=== PATIENT | female | born 1995 | race African-American/Black ===

== ENCOUNTER 2017-04-28 19:46 | Emergency (ER) | payer OTHER ==
[~2017-04-28] VITALS: Ht 154.9 cm; Wt 76.4 kg
[2017-04-28 19:47] VITALS: BP 147/84; PULSE 88; RESP 16; TEMP 98.7; O2SAT 97
[2017-04-28 21:02] LABS: AUTOMATED NEUTROPHIL # 4.5 TH/MM3 (1.8-7.7); BASOPHIL % 0.5 % (0.0-2.0); EOSINOPHIL # 0.1 TH/MM3 (0-0.4); EOSINOPHIL % 1.5 % (0.0-4.0); HEMATOCRIT 41.7 % (35.0-46.0); HEMOGLOBIN 13.2 GM/DL (11.6-15.3); LYMPH % 40.4 % (9.0-44.0); LYMPHOCYTE # 3.7 TH/MM3 (1.0-4.8); MEAN CORPUSCULAR HGB CONC 31.6 % (32.0-36.0); MEAN PLATELET VOLUME 7.6 FL (7.0-11.0); MONO % 7.7 % (0.0-8.0); MONOCYTE # 0.7 TH/MM3 (0-0.9); NEUT % 49.9 % (16.0-70.0); PLATELET COUNT 361 TH/MM3 (150-450); RED BLOOD COUNT 5.71 MIL/MM3 (4.00-5.30); RED CELL DISTRIBUTION WIDTH 14.5 % (11.6-17.2); WHITE BLOOD COUNT 9.1 TH/MM3 (4.0-11.0)
[2017-04-28] MEDS ORDERED: IBUPROFEN 600 MG TAB PO ONE (21:30)
[2017-04-28 21:38] LABS: ALBUMIN 3.9 GM/DL (3.4-5.0); AST (GOT) 17 U/L (15-37); BICARBONATE 27.6 MEQ/L (21.0-32.0); BLOOD UREA NITROGEN 16 MG/DL (7-18); CALCIUM 9.8 MG/DL (8.5-10.1); CHLORIDE 103 MEQ/L (98-107); GLOMERULAR FILTRATION RATE 94 ML/MIN (>89); GLUCOSE,RANDOM 77 MG/DL (74-106); LIPASE 153 U/L (73-393); SODIUM (NA) 139 MEQ/L (136-145)
[2017-04-28 21:39] LABS: BACTERIA, URINE RARE /hpf; BILIRUBIN, URINE NEG (NEG); BLOOD, URINE NEG (NEG); GLUCOSE,URINE NEG (NEG); KETONE, URINE NEG (NEG); MUCUS URINE FEW /lpf (OCC); NITRITE,URINE NEG (NEG); PH, URINE 5.5 (5.0-8.5); SQUAMOUS EPITHELIAL CELL URINE 3 /hpf (0-5); URINE COLOR LIGHT-YELLOW (YELLW/STRAW); URINE LEUKOCYTE ESTERASE MOD (NEG)
--- NOTE | 2017-04-28 21:39 | PD ---
HPI Chief Complaint: Abdominal Pain Time Seen by Provider: 21:01 Travel History International Travel<30 days: No Contact w/Intl Traveler<30days: No Traveled to known affect area: No History of Present Illness HPI Patient is a 22-year-old female presents emergency department for evaluation of left lower quadrant abdominal pain intermittent over the past week. Patient states she's not had a bowel movement in 5 days and thinks might be constipated. She went to her BRANCH COORDINATOR who did an exam ordered an ultrasound found her to have urinary tract infection and started her on antibiotics. Patient states she's been taking her antibiotics as prescribed, she's also been taking some MiraLAX only about a half a capful once a day. She denies any fevers blood in the stool nausea vomiting vaginal discharge vaginal bleeding or dysuria. Patient states the pain comes and goes, it is moderate to severe at times, context as above, associated signs symptoms as above. PFSH Past Medical History Cardiovascular Problems: Yes (cholesterol) ?: Not LMP: end of january Past Surgical History Surgical History: No Previous Surgery Family History Family History: Negative Social History Alcohol Use: No Tobacco Use: No Substance Use: No Allergies-Medications (Allergen,Severity, Reaction): Coded Allergies: No Allergy Information Available (Unverified , 04/28/17) Reported Meds & Prescriptions Reported Meds & Active Scripts Active Miralax Powder (Polyethylene Glycol 3350 Powder) 17 Gm Powd 17 Gm PO BID 7 Days Mix and dissolve one measuring cap-ful (17 grams) in water or juice. Review of Systems Except as stated in HPI: all other systems reviewed are Neg Physical Exam Narrative GENERAL: Well-developed well-nourished in no obvious distress SKIN: Focused skin assessment warm/dry. HEAD: Atraumatic. Normocephalic. EYES: Pupils equal and round. No scleral icterus. No injection or drainage. ENT: No nasal bleeding or discharge. Mucous membranes pink and moist. NECK: Trachea midline. No JVD. CARDIOVASCULAR: Regular rate and rhythm. No murmur appreciated. RESPIRATORY: No accessory muscle use. Clear to auscultation. Breath sounds equal bilaterally. GASTROINTESTINAL: Abdomen soft, non-tender, nondistended. Hepatic and splenic margins not palpable. No rebound no percussive tenderness. Abdomen soft and benign. No CVA tenderness. MUSCULOSKELETAL: No obvious deformities. No clubbing. No cyanosis. No edema. NEUROLOGICAL: Awake and alert. No obvious cranial nerve deficits. Motor grossly within normal limits. Normal speech. PSYCHIATRIC: Appropriate mood and affect; insight and judgment normal. Data Data Last Documented VS Vital Signs Date Time Temp Pulse Resp B/P (MAP) Pulse Ox O2 Delivery O2 Flow Rate FiO2 04/28/17 23:22 04/28/17 19:47 98.7 88 16 97 Orders Orders Complete Blood Count With Diff (04/28/17 19:52) Comprehensive Metabolic Panel (04/28/17 19:52) Lipase (04/28/17 19:52) Urinalysis - C+S If Indicated (04/28/17 19:52) Ed Urine Pregnancytest Poc (04/28/17 19:52) Ibuprofen (Motrin) (04/28/17 21:30) Urine Culture (04/28/17 20:20) Abdomen, Kub Only (04/28/17 ) Fleets Enema (Adult) (Fleets Enema (Adul (04/28/17 23:00) Ed Discharge Order (04/28/17 23:03) Labs Laboratory Tests Test 04/28/17 20:20 White Blood Count 9.1 TH/MM3 Red Blood Count 5.71 MIL/MM3 Hemoglobin 13.2 GM/DL Hematocrit 41.7 % Mean Corpuscular Volume 73.0 FL Mean Corpuscular Hemoglobin 23.0 PG Mean Corpuscular Hemoglobin Concent 31.6 % Red Cell Distribution Width 14.5 % Platelet Count 361 TH/MM3 Mean Platelet Volume 7.6 FL Neutrophils (%) (Auto) 49.9 % Lymphocytes (%) (Auto) 40.4 % Monocytes (%) (Auto) 7.7 % Eosinophils (%) (Auto) 1.5 % Basophils (%) (Auto) 0.5 % Neutrophils # (Auto) 4.5 TH/MM3 Lymphocytes # (Auto) 3.7 TH/MM3 Monocytes # (Auto) 0.7 TH/MM3 Eosinophils # (Auto) 0.1 TH/MM3 Basophils # (Auto) 0.0 TH/MM3 CBC Comment DIFF FINAL Differential Comment Urine Color LIGHT-YELLOW Urine Turbidity CLEAR Urine pH 5.5 Urine Specific [place] 1.012 Urine Protein NEG mg/dL Urine Glucose (UA) NEG mg/dL Urine Ketones NEG mg/dL Urine Occult Blood NEG Urine Nitrite NEG Urine Bilirubin NEG Urine Urobilinogen LESS THAN 2.0 MG/DL Urine Leukocyte Esterase MOD Urine RBC 3 /hpf Urine WBC 9 /hpf Urine Squamous Epithelial Cells 3 /hpf Urine Bacteria RARE /hpf Urine Mucus FEW /lpf Microscopic Urinalysis Comment CULTURE INDICATED Blood Urea Nitrogen 16 MG/DL Creatinine 0.90 MG/DL Random Glucose 77 MG/DL Total Protein 9.0 GM/DL Albumin 3.9 GM/DL Calcium Level 9.8 MG/DL Alkaline Phosphatase 92 U/L Aspartate Amino Transf (AST/SGOT) 17 U/L Alanine Aminotransferase (ALT/SGPT) 18 U/L Total Bilirubin 0.3 MG/DL Sodium Level 139 MEQ/L Potassium Level 4.3 MEQ/L Chloride Level 103 MEQ/L Carbon Dioxide Level 27.6 MEQ/L Anion Gap 8 MEQ/L Estimat Glomerular Filtration Rate 94 ML/MIN Lipase 153 U/L MDM Medical Decision Making Medical Screen Exam Complete: Yes Emergency Medical Condition: Yes Differential Diagnosis Impaction, constipation, ovarian torsion unlikely, STD unlikely, urinary tract infection, ovarian cysts, acute surgical abdomen highly unlikely. Narrative Course Patient roomed emerged permit, basic labs reassuring, UA shows only minimal evidence for UTI at this time and patient is already on antibiotics. Urine culture was sent. KUB does show significant stool burden and both ascending and descending colon. Further history the patient is eating a lot of dairy products and cheese and not very many green leafy vegetables or roughage. She appears comfortable, ibuprofen was given in emergency department. Discussed symptomatic management, she was given a fleets enema to take home and use at home, discussed MiraLAX 1 capful twice a day for the next week. Discussed to continue her follow-up with her BRANCH COORDINATOR and do the ultrasound as has been ordered. At this time her abdomen benign she appears well she is stable for discharge without further workup indicated at this time. Diagnosis Primary Impression: LLQ abdominal pain Additional Impression: Constipation Med/Other Pt SpecificInfo: Prescription(s) given Scripts Polyethylene Glycol 3350 Powder (Miralax Powder) 17 Gm Powd 17 GM PO BID for Constipation for 7 Days, #1 CAN 0 Refills Mix and dissolve one measuring cap-ful (17 grams) in water or juice. Prov: Adam Hernandez MD 04/28/17 Disposition: 01 DISCHARGE HOME Condition: Stable Adam Hernandez MD Apr 28, 2017 21:39
[2017-04-28 21:45] LABS: ALKALINE PHOSPHATASE 92 U/L (45-117); ALT (GPT) 18 U/L (10-53); TOTAL BILIRUBIN ADULT 0.3 MG/DL (0.2-1.0)
--- NOTE | 2017-04-28 22:42 | RADRPT ---
EXAM DATE/TIME: 04/28/2017 22:19 [facility] COMPARISON: No previous studies available for comparison. INDICATIONS : Left sided abdominal pain for 3 days MEDICAL HISTORY : None. SURGICAL HISTORY : None. ENCOUNTER: Initial ACUITY: 3 days PAIN SCORE: 8/10 LOCATION: Left abdomen FINDINGS: The bowel gas is nonspecific. There are no signs of obstruction or free air for technique. No defini te calcified stones are identified for technique. Moderate stool is present throughout the colon. CONCLUSION: Unremarkable study except for stool. KAgata Martinez MD on April 28, 2017 at 22:40 Board Certified Radiologist. This report was verified electronically.
[2017-04-28] MEDS ORDERED: SOD PHOSPHATE/SOD BIPHOSPHATE (ADULT) ENEMA 133ML RECTAL ONE (23:00)
[2017-04-28] MEDS ORDERED: MIRA3350 PO (23:03)
== END 2017-04-28 23:22 | disposition home or self-care (01) ==
LOC: NEPD 19:46
DX: K59.00 Constipation, unspecified (principal)
CPT/HCPCS: 74018; 80053; 81001; 83690; 84703; 85025; 87077; 87086; 87186; 99285